=== PATIENT | female | born 1965 | race Caucasian/White ===

== ENCOUNTER 2016-04-13 12:33 | Outpatient (CLI) | payer MEDICAID | END 2016-04-13 12:34 | disposition home or self-care (01) | DX: G95.9 Disease of spinal cord, unspecified (principal); M50.31 Other cervical disc degeneration, high cervical region; M47.812 Spondylosis without myelopathy or radiculopathy, cervical region; M50.21 Other cervical disc displacement, high cervical region; M25.78 Osteophyte, vertebrae ==

== ENCOUNTER 2016-04-19 08:00 | Outpatient (CLI) | payer MEDICAID | END 2016-04-19 08:01 | disposition home or self-care (01) | DX: R22.1 Localized swelling, mass and lump, neck (principal) ==

== ENCOUNTER 2016-04-20 16:17 | Emergency (ER) | payer MEDICAID ==
[2016-04-20] MEDS ORDERED: ASPIRIN CHEW 81 MG TABLET PO STA (16:33)
[2016-04-20] MEDS ORDERED: ASPIRIN CHEW 81 MG TABLET ONE (16:35)
[2016-04-20] MEDS ORDERED: diltiaZEM 30 MG TABLET PO STA (18:01)
[2016-04-20] MEDS ORDERED: diltiaZEM 30 MG TABLET PO ONE (18:03)
== END 2016-04-20 20:06 | disposition home or self-care (01) ==
DX: R07.9 Chest pain, unspecified (principal); I25.10 Atherosclerotic heart disease of native coronary artery without angina pectoris; G62.9 Polyneuropathy, unspecified
CPT/HCPCS: 36415; 71010; 80053; 83690; 84484; 85025; 93005; 93010; 99284; A9270

== ENCOUNTER 2016-05-02 07:49 | Outpatient (CLI) | payer MEDICAID ==
[2016-05-02] MEDS ORDERED: GADOBUTROL 10 MMOL/10 ML VIAL IVP ONE (09:37)
== END 2016-05-02 07:50 | disposition home or self-care (01) ==
DX: G35 Multiple sclerosis (principal); G95.9 Disease of spinal cord, unspecified; M50.321 Other cervical disc degeneration at C4-C5 level; M47.812 Spondylosis without myelopathy or radiculopathy, cervical region; M50.21 Other cervical disc displacement, high cervical region
CPT/HCPCS: 70553; 72156; A9585

== ENCOUNTER 2016-08-01 14:23 | Outpatient (CLI) | payer MEDICAID ==
--- NOTE | 2016-08-02 09:48 | XRAY Report ---
THREE-VIEW LUMBAR SPINE: 08/01/2016 CLINICAL INDICATION: Right sciatica. FINDINGS: AP, lateral, coned-down views of the lumbar spine demonstrate mild degenerative disc and f acet disease. There is no evidence of fracture or subluxation. Postoperative changes of cholecystec fabián are noted. IMPRESSION: MILD DEGENERATIVE CHANGES IN THE LUMBAR SPINE. JOB #: [id number] EXT JOB #:[id number]
== END 2016-08-01 14:24 | disposition home or self-care (01) ==
LOC: DI.N 14:23
PROVIDERS: ATTEND Family Medicine
DX: M51.36 Other intervertebral disc degeneration, lumbar region (principal); M47.896 Other spondylosis, lumbar region
CPT/HCPCS: 72100

== ENCOUNTER 2016-08-10 10:40 | Emergency (ER) | payer MEDICAID ==
[2016-08-10] MEDS ORDERED: DEXAMETHASONE 10 MG/ML VIAL PO STA (11:54)
[2016-08-10] MEDS ORDERED: CHERRY SYRUP 10 ML UDC PO ONE (11:58)
[2016-08-10] MEDS ORDERED: DEXAMETHASONE 10 MG/ML VIAL ONE (11:59)
--- NOTE | 2016-08-10 12:05 | ED Physician Documentation ---
History of Present Illness - Stated complaint Stated Complaint: PAIN ALL OVER - Chief complaint Chief Complaint: Back Pain - History obtained from History obtained from: Patient - History of Present Illness Timing: How many days ago (4) - Additonal information Additional information: 51 y/o female with MS diagnosed 3 months ago has developed pain in her arms legs and across the back of her neck and across the front of her legs. She has an annoying pain that was some better yesterday when she took a percocet of her husbands. She has started to feel ill but has no specific symptoms. Review of Systems Constitutional: reports: Myalgias, Fatigue. denies: Fever, Chills Eyes: denies: Decreased vision Ears: denies: Ear pain Nose: denies: Rhinorrhea / runny nose, Congestion Throat: denies: Sore throat Cardiac: denies: Chest pain / pressure, Palpitations Respiratory: denies: Dyspnea, Cough GI: denies: Abdominal Pain, Nausea, Vomiting : denies: Dysuria, Frequency Skin: denies: Rash, Lesions Musculoskeletal: reports: Neck pain, Back pain, Extremity pain. denies: Joint pain, Extremity swelling Neurologic: reports: Numbness. denies: Generalized weakness, Focal weakness PD PAST MEDICAL HISTORY - Past Medical History Past Medical History: Yes Cardiovascular: None Respiratory: None Neuro: Peripheral neuropathy, Multiple sclerosis Endocrine/Autoimmune: None : None HEENT: None Psych: Depression Musculoskeletal: None Derm: None - Past Surgical History Past Surgical History: Yes General: Cholecystectomy Ortho: Other HEENT: Tonsil/Adenoidectomy - Present Medications Home Medications: Ambulatory Orders Medication Instructions Recorded Confirmed Bupropion HCl [Wellbutrin] 300 mg PO DAILY 11/16/12 08/10/16 Clonazepam 0.5 mg PO DAILY PRN 11/16/12 08/10/16 Nitroglycerin [Nitrostat] 0.4 mg SL Q5MIN PRN 05/03/13 08/10/16 Omeprazole [PriLOSEC] 20 mg PO DAILY 05/03/13 08/10/16 Topiramate [Topamax] 50 mg TID 04/20/16 08/10/16 Azithromycin [Zithromax] 250 mg PO DAILY #6 tablet 08/10/16 HYDROcod/ACETAM 5/325 [[place] 5/325] 1 - 2 ea PO Q6H PRN #15 tablet 08/10/16 - Allergies Allergies/Adverse Reactions: Allergies Allergy/AdvReac Type Severity Reaction Status Date / Time aripiprazole [From Abilify] Allergy Unknown Verified 08/10/16 10:48 - Social History Does the pt smoke?: No Smoking Status: Never smoker Does the pt drink ETOH?: No Does the pt have substance abuse?: No - Immunizations Immunizations are current?: Yes - POLST Patient has POLST: No PD ED PE NORMAL - Vitals Vital signs reviewed: Yes (hypertension ) - General General: Alert and oriented X 3, No acute distress, Well developed/nourished - HEENT HEENT: Atraumatic, PERRL, EOMI, Other (The left TM is inflammed in the attic but with retained landmarks. The right is clear. 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 ) - Psych Psych: Normal mood, Normal affect Results - Vitals Vitals: Vital Signs - 24 hr 08/10/16 08/10/16 10:43 12:13 Temperature 36.8 C Heart Rate 82 73 Respiratory 18 18 Rate Blood Pressure 128/91 H 132/85 H O2 Saturation 100 100 Oxygen O2 Source Room air PD MEDICAL DECISION MAKING - ED course Complexity details: reviewed old records, reviewed results, considered differential, d/w patient ED course: 51 y/o female with MS started aching everywhere and appears to have OM on exam. She is treated for this and referred back to her primary. She will need followup with the neurologist. Departure - Departure Disposition: 01 Home, Self Care Clinical Impression: Otitis media Qualifiers: Otitis media type: suppurative Laterality: left Chronicity: acute Recurrence: not specified as recurrent Spontaneous tympanic membrane rupture: without spontaneous rupture Qualified Code(s): H66.002 - Acute suppurative otitis media without spontaneous rupture of ear drum, left ear Condition: Stable Instructions: ED Otitis Media Acute Adult Follow-Up: Eulogio Moya MD [Primary Care Provider] - Prescriptions: HYDROcod/ACETAM 5/325 [[place] 5/325] 1 - 2 ea PO Q6H PRN #15 tablet PRN Reason: Pain Azithromycin [Zithromax] 250 mg PO DAILY #6 tablet
[2016-08-10 12:14] VITALS: BP 132/85
== END 2016-08-10 12:29 | disposition home or self-care (01) ==
LOC: ED 10:40
DX: H66.002 Acute suppurative otitis media without spontaneous rupture of ear drum, left ear (principal); G35 Multiple sclerosis; G62.9 Polyneuropathy, unspecified
CPT/HCPCS: 99283; A9270

== ENCOUNTER 2016-08-30 10:34 | Outpatient (CLI) | payer MEDICAID ==
[2016-08-30 13:19] LABS: BASOPHILS % (AUTO) 0.7 %; EOSINOPHILS # (AUTO) 0.1 10^3/uL (0.0-0.7); EOSINOPHILS % (AUTO) 2.4 %; HCT - HEMATOCRIT 40.5 % (37.0-47.0); HGB - HEMOGLOBIN 13.4 g/dL (12.0-16.0); LYMPHOCYTES # (AUTO) 1.9 10^3/uL (1.5-3.5); LYMPHOCYTES % (AUTO) 41.9 %; MEAN CORPUSCULAR HEMOGLOBIN 29.2 pg (27.0-31.0); MEAN CORPUSCULAR HGB CONC 32.9 g/dL (32.0-36.0); MEAN CORPUSCULAR VOLUME 88.7 fL (81.0-99.0); MEAN PLATELET VOLUME 8.4 fL (7.9-10.8); MONOCYTES # (AUTO) 0.3 10^3/uL (0.0-1.0); MONOCYTES % (AUTO) 6.2 %; NEUTROPHILS # (AUTO) 2.3 10^3/uL (1.5-6.6); NEUTROPHILS % (AUTO) 48.8 %; NUCLEATED RED BLOOD CELLS AUTO 0.1 /100WBC; RED BLOOD COUNT 4.57 10^6/uL (4.20-5.40); RED CELL DISTRIBUTION WIDTH 13.5 % (12.0-15.0); UNCORRECTED WHITE BLOOD COUNT 4.6 x10^3/uL; WHITE BLOOD COUNT 4.6 x10^3/uL (4.8-10.8)
[2016-08-30 13:38] LABS: ALBUMIN/GLOBULIN RATIO 1.5 (1.0-2.2); BILIRUBIN,TOTAL 0.9 mg/dL (0.2-1.0); BUN - BLOOD UREA NITROGEN 18 mg/dL (6-20); CALCIUM 9.4 mg/dL (8.5-10.3); CARBON DIOXIDE - CO2 26 mmol/L (21-32); CHLORIDE 105 mmol/L (101-111); CHOL/HDL RATIO 5.7 (<4.4); CHOLESTEROL 215 mg/dL; CREATININE 0.9 mg/dL (0.4-1.0); GFR - MDRD 66 (>89); GLUCOSE 124 mg/dL (70-100); HDL CHOLESTEROL 38 mg/dL; LDL/HDL RATIO 3.4 (<4.4); POTASSIUM 3.9 mmol/L (3.5-5.0); SODIUM 140 mmol/L (135-145); TOTAL PROTEIN 7.3 g/dL (6.7-8.2); TRIGLYCERIDES 234 mg/dL; VLDL CHOLESTEROL 47 mg/dL
== END 2016-08-30 10:35 | disposition home or self-care (01) ==
LOC: LAB.N 10:34
PROVIDERS: ATTEND Nurse Practitioner Gerontology
DX: Z79.899 Other long term (current) drug therapy (principal)
CPT/HCPCS: 36415; 80053; 80061; 84443; 85025

== ENCOUNTER 2017-04-18 10:15 | Outpatient (CLI) | payer MEDICAID | END 2017-04-18 10:30 | disposition home or self-care (01) | LOC: RT.N 10:15 | PROVIDERS: ATTEND Nurse Practitioner Gerontology | DX: R07.89 Other chest pain (principal) | CPT/HCPCS: 93005 ==

== ENCOUNTER 2017-04-18 11:33 | Outpatient (CLI) | payer MEDICAID ==
[2017-04-18 19:54] LABS: HB2 TOTAL 14.5 g/dL; HEMOGLOBIN A1C 0.5 g/dL; HEMOGLOBIN A1C % 5.3 % (4.6-6.2)
== END 2017-04-18 11:34 | disposition home or self-care (01) ==
LOC: LAB.N 11:33
PROVIDERS: ATTEND Nurse Practitioner Gerontology
DX: R73.9 Hyperglycemia, unspecified (principal)
CPT/HCPCS: 36415; 83036

== ENCOUNTER 2017-10-14 13:50 | Outpatient (CLI) | payer MEDICAID ==
[2017-10-14 18:41] LABS: BASOPHILS # (AUTO) 0.1 10^3/uL (0.0-0.1); BASOPHILS % (AUTO) 0.8 %; EOSINOPHILS # (AUTO) 0.2 10^3/uL (0.0-0.7); HGB - HEMOGLOBIN 14.4 g/dL (12.0-16.0); LYMPHOCYTES # (AUTO) 2.2 10^3/uL (1.5-3.5); LYMPHOCYTES % (AUTO) 30.6 %; MEAN CORPUSCULAR HEMOGLOBIN 30.1 pg (27.0-31.0); MEAN CORPUSCULAR HGB CONC 33.8 g/dL (32.0-36.0); MONOCYTES # (AUTO) 0.5 10^3/uL (0.0-1.0); MONOCYTES % (AUTO) 6.5 %; NEUTROPHILS # (AUTO) 4.3 10^3/uL (1.5-6.6); NEUTROPHILS % (AUTO) 59.1 %; PLT - PLATELET COUNT 273 10^3/uL (130-450); RED BLOOD COUNT 4.77 10^6/uL (4.20-5.40); WHITE BLOOD COUNT 7.3 x10^3/uL (4.8-10.8)
== END 2017-10-14 13:51 | disposition home or self-care (01) ==
LOC: LAB.N 13:50
PROVIDERS: ATTEND Nurse Practitioner
DX: R53.83 Other fatigue (principal)
CPT/HCPCS: 36415; 85025

== ENCOUNTER → 2017-10-15 | Outpatient (CLI) | payer MEDICAID | LOC: LAB.R 15:59 | PROVIDERS: ATTEND Nurse Practitioner | DX: K92.1 Melena (principal) | CPT/HCPCS: 82274 ==

== ENCOUNTER 2017-12-09 07:30 | Outpatient (CLI) | payer MEDICAID ==
--- NOTE | 2017-12-09 09:03 | Ultrasound Report ---
Reason: ABDOMINAL PAIN,CHRONIC Procedure Date: 12/09/2017 Accession Number: [id number] / [id number] Procedure: US - Abdomen Complete CPT Code: FULL RESULT: EXAM: ABDOMEN ULTRASOUND EXAM DATE: 12/09/2017 08:44 AM. CLINICAL HISTORY: ABDOMINAL Pain, chronic. COMPARISON: None. TECHNIQUE: Real-time scanning was performed with static images obtained. FINDINGS: Liver: Mild diffuse increase echogenicity is consistent with fatty infiltration. No focal abnormality. Normal size, 15.9 cm. Main portal vein flow: Hepatopetal. Gallbladder: Surgically absent. Biliary System: Common bile duct measures 5.6 mm. No intrahepatic or extrahepatic ductal dilatation. Pancreas: Visualized portion is unremarkable. Kidneys: Right: 10.9 cm longitudinally. Normal. No contour-deforming mass, stones, or hydronephrosis. Left: 10.1 cm longitudinally. Normal. No contour-deforming mass, stones, or hydronephrosis. Spleen: Maximum diameter 10.2 cm. Normal in size and echotexture. Aorta and Inferior Vena Cava: Unremarkable. Other: No free fluid. IMPRESSION: 1. Diffuse fatty infiltration of liver. 2. Status post cholecystectomy. 3. No acute abnormality demonstrated. RADIA
== END 2017-12-09 07:31 | disposition home or self-care (01) ==
LOC: DI 07:30
PROVIDERS: ATTEND Nurse Practitioner
DX: K76.0 Fatty (change of) liver, not elsewhere classified (principal); R10.9 Unspecified abdominal pain; R53.83 Other fatigue; Z90.49 Acquired absence of other specified parts of digestive tract; E78.5 Hyperlipidemia, unspecified
CPT/HCPCS: 36415; 76700; 82150; 82977; 83690; 85651; 86038; 86140

== ENCOUNTER 2017-12-09 09:08 | Outpatient (CLI) | payer MEDICAID ==
[2017-12-09 12:38] LABS: AMYLASE 43 U/L (28-100); GAMMA GLUTAMYL TRANSPEPTIDASE 20 IU/L (8-38); LIPASE 39 U/L (22-51)
[2017-12-09 13:09] LABS: CRP - C-REACTIVE PROTEIN < 1.0 mg/dL (0-1.0)
[2017-12-11 12:21] LABS: ANA SCREEN NEGATIVE (NEGATIVE)
== END 2017-12-09 09:09 | disposition home or self-care (01) ==
LOC: LAB.N 09:08
PROVIDERS: ATTEND Nurse Practitioner
DX: R10.9 Unspecified abdominal pain (principal); R53.83 Other fatigue; E78.5 Hyperlipidemia, unspecified
CPT/HCPCS: 36415; 82150; 82977; 83690; 85651; 86038; 86140

== ENCOUNTER 2018-01-27 12:50 | Emergency (ER) | payer MEDICAID ==
[2018-01-27 13:40] LABS: BASOPHILS # (AUTO) 0.1 10^3/uL (0.0-0.1); BASOPHILS % (AUTO) 0.8 %; EOSINOPHILS # (AUTO) 0.2 10^3/uL (0.0-0.7); EOSINOPHILS % (AUTO) 2.3 %; HGB - HEMOGLOBIN 13.3 g/dL (12.0-16.0); LYMPHOCYTES # (AUTO) 2.4 10^3/uL (1.5-3.5); MEAN CORPUSCULAR HEMOGLOBIN 29.9 pg (27.0-31.0); MEAN CORPUSCULAR HGB CONC 34.3 g/dL (32.0-36.0); MEAN CORPUSCULAR VOLUME 87.3 fL (81.0-99.0); MEAN PLATELET VOLUME 7.7 fL (7.9-10.8); MONOCYTES # (AUTO) 0.4 10^3/uL (0.0-1.0); MONOCYTES % (AUTO) 5.8 %; NEUTROPHILS # (AUTO) 4.1 10^3/uL (1.5-6.6); NEUTROPHILS % (AUTO) 57.1 %; PLT - PLATELET COUNT 268 10^3/uL (130-450); RED BLOOD COUNT 4.45 10^6/uL (4.20-5.40); RED CELL DISTRIBUTION WIDTH 13.5 % (12.0-15.0); WHITE BLOOD COUNT 7.2 x10^3/uL (4.8-10.8)
--- NOTE | 2018-01-27 13:46 | ED Physician Documentation ---
PD HPI CHEST PAIN - Stated complaint Stated Complaint: CHEST PX/SOA - Chief complaint Chief Complaint: Cardiac - History obtained from History obtained from: Patient - History of Present Illness Timing - onset: How many months ago (about a month of fatigue, dypsnea, intermittent sharp chest pains mostly at rest.) Timing - onset during: Rest. No: Light activity Timing - duration: Months (1) Timing - details: Gradual onset, Intermittant Quality: Aching, Sharp Location: Substernal, Left chest Radiation: No: Jaw, Neck Worsened by: No: Exertion, Palpation Associated symptoms: Shortness of air, General Weakness. No: Nausea, Vomiting, Feeling faint / dizzy, Palpitations, Cough Similar symptoms before: Has not had sx before Recently seen: Not recently seen Review of Systems Constitutional: reports: Fatigue. denies: Fever, Weight Loss Nose: denies: Rhinorrhea / runny nose, Congestion Throat: denies: Sore throat Respiratory: reports: Dyspnea. denies: Cough, Wheezing (but feels tight to take deep breath) GI: denies: Abdominal Pain, Nausea, Vomiting, Diarrhea, Bloody / black stool Neurologic: reports: Generalized weakness. denies: Focal weakness, Numbness PD PAST MEDICAL HISTORY - Past Medical History Cardiovascular: None Respiratory: None Endocrine/Autoimmune: None : None HEENT: None Psych: Depression Musculoskeletal: None Derm: None - Past Surgical History Past Surgical History: Yes General: Cholecystectomy Ortho: Other HEENT: Tonsil/Adenoidectomy - Present Medications Home Medications: Ambulatory Orders Medication Instructions Recorded Confirmed Bupropion HCl [Wellbutrin] 300 mg PO DAILY 11/16/12 08/10/16 Clonazepam 0.5 mg PO DAILY PRN 11/16/12 08/10/16 Nitroglycerin [Nitrostat] 0.4 mg SL Q5MIN PRN 05/03/13 08/10/16 Omeprazole [PriLOSEC] 20 mg PO DAILY 05/03/13 08/10/16 Topiramate [Topamax] 50 mg TID 04/20/16 08/10/16 Azithromycin [Zithromax] 250 mg PO DAILY #6 tablet 08/10/16 HYDROcod/ACETAM 5/325 [[place] 5/325] 1 - 2 ea PO Q6H PRN #15 tablet 08/10/16 Albuterol Sulf [Ventolin Hfa 1 - 2 puffs INH Q4HR PRN #1 inhaler 01/27/18 Inhaler] Dexamethasone [Decadron] 4 mg PO DAILY #5 tablet 01/27/18 Naproxen 375 mg PO BID #20 tablet 01/27/18 - Allergies Allergies/Adverse Reactions: Allergies Allergy/AdvReac Type Severity Reaction Status Date / Time aripiprazole [From Abilify] Allergy Unknown Verified 08/10/16 10:48 - Social History Does the pt smoke?: No Smoking Status: Never smoker Does the pt drink ETOH?: No Does the pt have substance abuse?: No - Family History Family history: reports: CAD - Immunizations Immunizations are current?: Yes - POLST Patient has POLST: No PD ED PE NORMAL - Vitals Vital signs reviewed: Yes - General General: Alert and oriented X 3, No acute distress, Well developed/nourished - HEENT HEENT: Ears normal, Pharynx benign - Neck Neck: Supple, no meningeal sign, No adenopathy - Cardiac Cardiac: RRR, No murmur, No rub - Respiratory Respiratory: No respiratory distress, Other (decreased tidal volume without overt wheezing. ) Results - Vitals Vitals: Oxygen O2 Source Room air - EKG (time done) 13:00 Rate: Rate (enter#) (80) Rhythm: NSR [place]: Normal Intervals: Normal LA QRS: Normal Ischemia: Normal ST segments. No: ST elevation c/w ischemia, ST depression - Labs Labs: Laboratory Tests 01/27/18 01/27/18 01/27/18 13:30 13:30 13:30 WBC 7.2 RBC 4.45 Hgb 13.3 Hct 38.9 MCV 87.3 MCH 29.9 MCHC 34.3 RDW 13.5 Plt Count 268 MPV 7.7 L Neut # (Auto) 4.1 Lymph # (Auto) 2.4 [place] # (Auto) 0.4 Eos # (Auto) 0.2 Baso # (Auto) 0.1 Absolute Nucleated RBC 0.00 Nucleated RBC % 0.0 D-Dimer Sodium 138 Potassium 3.8 Chloride 104 Carbon Dioxide 29 Anion Gap 5.0 L BUN 20 Creatinine 0.9 Estimated GFR (MDRD) 66 L Glucose 105 H Calcium 9.3 Total Bilirubin 0.7 AST 22 ALT 27 Alkaline Phosphatase 69 Troponin I < 0.04 B-Natriuretic Peptide Total Protein 7.5 Albumin 4.4 Globulin 3.1 Albumin/Globulin Ratio 1.4 Lipase 41 01/27/18 01/27/18 13:30 13:30 WBC RBC Hgb Hct MCV MCH MCHC RDW Plt Count MPV Neut # (Auto) Lymph # (Auto) [place] # (Auto) Eos # (Auto) Baso # (Auto) Absolute Nucleated RBC Nucleated RBC % D-Dimer 256.9 H Sodium Potassium Chloride Carbon Dioxide Anion Gap BUN Creatinine Estimated GFR (MDRD) Glucose Calcium Total Bilirubin AST ALT Alkaline Phosphatase Troponin I B-Natriuretic Peptide 29 Total Protein Albumin Globulin Albumin/Globulin Ratio Lipase - Rads (name of study) chest xray Radiology: Prelim report reviewed (no acute process), EMP read contemporaneou sly, See rad report PD MEDICAL DECISION MAKING - ED course Complexity details: reviewed results (CXR, ECG, Trop, BNP and D-dimer are n egative. ), re-evaluated patient (feels improved moderately with neb treatment. Presume bronchial/allergy cause of the dysnea and then pleuritic pains related. ), considered differential (the pattern of the pain does not sound anginal, being sharp and intermittent, mostly at rest, not exertional. Ongoing dyspnea. ), d/w patient Departure - Departure Disposition: 01 Home, Self Care Clinical Impression: Chest pain Qualifiers: Chest pain type: unspecified Qualified Code(s): R07.9 - Chest pain, unspecified Dyspnea Qualifiers: Dyspnea type: dyspnea on exertion Qualified Code(s): R06.09 - Other forms of dyspnea Condition: Stable Record reviewed to determine appropriate education?: Yes Instructions: ED Chest Pain Atypical Unkn Cause, ED Dyspnea Shortness of Breath Follow-Up: [facility] [Provider Group] Prescriptions: Albuterol Sulf [Ventolin Hfa Inhaler] 1 - 2 puffs INH Q4HR PRN #1 inhaler PRN Reason: Shortness Of Air/Wheezing Dexamethasone [Decadron] 4 mg PO DAILY #5 tablet Naproxen 375 mg PO BID #20 tablet Comments: Follow-up with your primary care in the next week or so. They may consider doing a outpatient cardiac stress test to ensure no heart disease at all. At this point will presume it is more lung related and inflammatory and treated with naproxen steroids and an albuterol inhaler and see how it does over the next week. Discharge Date/Time: 01/27/18 15:28
[2018-01-27 13:48] LABS: ALBUMIN 4.4 g/dL (3.2-5.5); ALBUMIN/GLOBULIN RATIO 1.4 (1.0-2.2); BILIRUBIN,TOTAL 0.7 mg/dL (0.2-1.0); CALCIUM 9.3 mg/dL (8.5-10.3); CREATININE 0.9 mg/dL (0.4-1.0); TOTAL PROTEIN 7.5 g/dL (6.7-8.2)
--- NOTE | 2018-01-27 14:07 | XRAY Report ---
Reason: chest pain/soa Procedure Date: 01/27/2018 Accession Number: [id number] / [id number] Procedure: XR - Chest 1 View X-Ray CPT Code: 09055 FULL RESULT: EXAM: CHEST RADIOGRAPHY EXAM DATE: 01/27/2018 01:52 PM. CLINICAL HISTORY: Chest pain/short of air. COMPARISON: None. TECHNIQUE: 1 view. FINDINGS: Lungs/Pleura: No focal opacities evident. No pleural effusion. No pneumothorax. Mediastinum: Within exam limitations, the cardiomediastinal contour is normal. Other: None. IMPRESSION: No acute cardiopulmonary abnormality is identified. RADIA
[2018-01-27] MEDS ORDERED: KETOROLAC 60 MG/2 ML VIAL IVP STA (14:11)
[2018-01-27] MEDS ORDERED: ALBUTEROL NEB 2.5 MG/3 ML INH STA (14:11)
[2018-01-27] MEDS ORDERED: LORazepam 2 MG/ML VIAL IVP STA (14:12)
[2018-01-27 14:51] VITALS: BP 149/82
== END 2018-01-27 15:28 | disposition home or self-care (01) ==
LOC: ED 12:50
DX: R07.9 Chest pain, unspecified (principal); R06.00 Dyspnea, unspecified
CPT/HCPCS: 36415; 71045; 80053; 83690; 83880; 84484; 85025; 85379; 93005; 96374; 99283; J2060

== ENCOUNTER → 2018-07-29 | Outpatient (CLI) | payer MEDICAID ==
[2018-07-29 19:18] LABS: BILIRUBIN,URINE NEGATIVE (NEGATIVE); GLUCOSE, URINE (UA) NEGATIVE (NEGATIVE); KETONES,URINE (UA) NEGATIVE (NEGATIVE); LEUKOCYTE ESTERASE, URINE SMALL (NEGATIVE); NITRITE,URINE POSITIVE (NEGATIVE); OCCULT BLOOD,URINE LARGE (NEGATIVE); PH,URINE 5.5 PH (5.0-7.5); PROTEIN,URINE 30 mg/dL (NEGATIVE); UROBILINOGEN,URINE 0.2 (NORMAL) E.U./dL (NORMAL)
[2018-07-29 19:31] LABS: CLARITY,URINE HAZY (CLEAR)
[2018-07-29 19:48] LABS: RBC,URINE TNTC /HPF (0-5)
[2018-07-29 19:49] LABS: BACTERIA,URINE Rare /HPF (None Seen); SQUAMOUS EPITHELIAL CELL,UR FEW Squamous (<= Few)
== END ==
LOC: LAB.R 08:00
PROVIDERS: ATTEND Physician Assistant Medical
DX: R30.0 Dysuria (principal)
CPT/HCPCS: 81001; 81003; 87086

== ENCOUNTER 2018-12-08 14:20 | Outpatient (CLI) | payer MEDICAID ==
[2018-12-08 18:58] LABS: BASOPHILS % (AUTO) 0.6 %; EOSINOPHILS # (AUTO) 0.2 10^3/uL (0.0-0.7); EOSINOPHILS % (AUTO) 3.2 %; HGB - HEMOGLOBIN 13.5 g/dL (12.0-16.0); LYMPHOCYTES # (AUTO) 1.9 10^3/uL (1.5-3.5); LYMPHOCYTES % (AUTO) 28.7 %; MEAN CORPUSCULAR HEMOGLOBIN 28.4 pg (27.0-31.0); MEAN CORPUSCULAR HGB CONC 30.5 g/dL (32.0-36.0); MEAN CORPUSCULAR VOLUME 92.9 fL (81.0-99.0); MEAN PLATELET VOLUME 10.2 fL (7.9-10.8); MONOCYTES # (AUTO) 0.3 10^3/uL (0.0-1.0); MONOCYTES % (AUTO) 4.6 %; NEUTROPHILS # (AUTO) 4.1 10^3/uL (1.5-6.6); NEUTROPHILS % (AUTO) 62.6 %; PLT - PLATELET COUNT 293 10^3/uL (130-450); RED BLOOD COUNT 4.76 10^6/uL (4.20-5.40); RED CELL DISTRIBUTION WIDTH 13.4 % (12.0-15.0); WHITE BLOOD COUNT 6.5 x10^3/uL (4.8-10.8)
[2018-12-08 19:48] LABS: CALCIUM 9.6 mg/dL (8.5-10.3); CREATININE 0.9 mg/dL (0.4-1.0)
== END 2018-12-08 23:59 | disposition home or self-care (01) ==
LOC: LAB.N 14:20
PROVIDERS: ATTEND Physician Assistant Medical
DX: R07.89 Other chest pain (principal); R06.02 Shortness of breath
CPT/HCPCS: 36415; 80048; 83880; 84443; 85025

== ENCOUNTER 2018-12-08 14:22 | Outpatient (CLI) | payer MEDICAID ==
--- NOTE | 2018-12-08 15:26 | XRAY Report ---
Reason: SHORTNESS OF BREATH Procedure Date: 12/08/2018 Accession Number: [id number] / [id number] Procedure: XRN - Chest 2 View X-Ray CPT Code: 99006 FULL RESULT: EXAM: CHEST RADIOGRAPHY EXAM DATE: 12/08/2018 02:42 PM. CLINICAL HISTORY: SHORTNESS OF BREATH. COMPARISON: CHEST 1 VIEW 01/27/2018 1:43 PM. TECHNIQUE: 2 views. FINDINGS: Lungs/Pleura: No focal opacities evident. No pleural effusion. No pneumothorax. Normal volumes. Mediastinum: Heart and mediastinal contours are unremarkable. Other: Unremarkable bony structures. Surgical clips upper abdomen IMPRESSION: Clear lungs. No acute findings. RADIA
== END 2018-12-08 14:23 | disposition home or self-care (01) ==
LOC: DI.N 14:22
PROVIDERS: ATTEND Physician Assistant Medical
DX: R07.89 Other chest pain (principal); R06.02 Shortness of breath
CPT/HCPCS: 71046